=== PATIENT | female | born 1995 | race Two or more races ===

== ENCOUNTER 2022-08-27 11:47 | Inpatient (IN) | payer MEDICAID ==
[~2022-08-27] VITALS: Ht 157.5 cm; Wt 63.5 kg
[2022-08-27] MEDS ORDERED: PREN-96 PO (12:34)
[2022-08-27] MEDS ORDERED: TERBUTALINE SULFATE 1 MG/ML 1ML VIAL SC ONE (13:08)
[2022-08-27] MEDS ORDERED: BETAMETHASONE ACET (30mg/5ml) 5ml Vial 6mg/ml IM ONE (13:15)
[2022-08-27] MEDS ORDERED: TERBUTALINE SULFATE 1 MG/ML 1ML VIAL SC SCH (13:15)
[2022-08-27] MEDS ORDERED: LACTATED RINGER'S 1,000 ML IV SCH (13:45)
== END 2022-08-27 14:13 | disposition home or self-care (01) | DRG 566 ==
LOC: LDRP 11:47 → OBSVTOIN 13:03
PROVIDERS: ADMIT Obstetrics & Gynecology; ATTEND Obstetrics & Gynecology
DX: O44.13 Complete placenta previa with hemorrhage, third trimester (principal); O60.03 Preterm labor without delivery, third trimester; Z20.822 Contact with and (suspected) exposure to COVID-19; Z3A.28 28 weeks gestation of pregnancy
CPT/HCPCS: 36415; 59025; 76805; 81002; 87426; 94760; 96372; G0378

== ENCOUNTER 2023-04-29 08:35 | Emergency (ER) | payer MEDICAID ==
[~2023-04-29] VITALS: Ht 157.5 cm; Wt 63.1 kg
[~2023-04-29 08:35] MED LIST: PREN-96 PO
[2023-04-29 10:18] VITALS: BP 112/74; PULSE 106; RESP 16; TEMP 98.3; O2SAT 95
[2023-04-29 11:05] LABS: COVID19 ANTIGEN SOFIA FIA NEGATIVE (NEGATIVE); Rapid Influenza A Negative (Negative); Rapid Influenza B Negative (Negative)
[2023-04-29] MEDS ORDERED: IBUP1TAB5 PO (11:59)
[2023-04-29] MEDS ORDERED: BENZ100C97 PO (11:59)
[2023-04-29] MEDS ORDERED: PROM1SOL4 PO (11:59)
[2023-04-29] MEDS ORDERED: ZOFR4T PO (11:59)
== END 2023-04-29 12:04 | disposition home or self-care (01) ==
LOC: ER 08:35
DX: J06.9 Acute upper respiratory infection, unspecified (principal); J02.9 Acute pharyngitis, unspecified; Z20.822 Contact with and (suspected) exposure to COVID-19
CPT/HCPCS: 36415; 87426; 87804